=== PATIENT | female | born 1955 | race Caucasian/White ===

== ENCOUNTER → 2024-03-13 13:10 | Outpatient (REF) | payer MEDICARE, OTHER, SELFPAY | LOC: HWRAD 13:10 | PROVIDERS: ATTENDING PHYSICIAN Family Medicine | DX: Z12.31 Encounter for screening mammogram for malignant neoplasm of breast (principal); M81.0 Age-related osteoporosis without current pathological fracture | CPT/HCPCS: 77063; 77067; 77080 ==

== ENCOUNTER 2024-07-26 10:25 | Outpatient (RCR) | payer MEDICARE, OTHER, SELFPAY | END 2024-08-01 11:12 | disposition home or self-care (01) | LOC: RPT 10:25 | PROVIDERS: ATTENDING PHYSICIAN Physician Assistant; FAMILY PHYSICIAN Family Medicine | DX: M62.89 Other specified disorders of muscle (principal); R15.2 Fecal urgency; R15.9 Full incontinence of feces; Z73.6 Limitation of activities due to disability | CPT/HCPCS: 97162; 97530 ==

== ENCOUNTER → 2024-08-03 06:18 | Day surgery (SDC) | payer MEDICARE, OTHER, SELFPAY | LOC: GI 06:18 | PROVIDERS: ATTENDING PHYSICIAN Internal Medicine Gastroenterology; FAMILY PHYSICIAN Family Medicine | DX: Z12.11 Encounter for screening for malignant neoplasm of colon (principal); D12.3 Benign neoplasm of transverse colon; D12.5 Benign neoplasm of sigmoid colon; K62.1 Rectal polyp; K64.0 First degree hemorrhoids; Z86.0100 Personal history of colon polyps, unspecified; Z87.19 Personal history of other diseases of the digestive system | CPT/HCPCS: 45380; 88305 ==

== ENCOUNTER → 2025-05-29 12:51 | Outpatient (REF) | payer MEDICARE, OTHER, SELFPAY | LOC: HWWDC 12:51 | PROVIDERS: ATTENDING PHYSICIAN Family Medicine | DX: Z12.31 Encounter for screening mammogram for malignant neoplasm of breast (principal) | CPT/HCPCS: 77063; 77067 ==

== ENCOUNTER → 2025-07-30 12:13 | Outpatient (REF) | payer MEDICARE, OTHER, SELFPAY | LOC: PAVMRI 12:13 | PROVIDERS: ATTENDING PHYSICIAN Specialist; FAMILY PHYSICIAN Family Medicine | DX: M25.511 Pain in right shoulder (principal) | CPT/HCPCS: 73221 ==